=== PATIENT | male | born 1965 | race Caucasian/White ===

== ENCOUNTER 2017-11-10 14:27 | Emergency (ER) | payer OTHER ==
[2017-11-10 18:25] LABS: ADD MAN DIFF? NO
[2017-11-10 18:28] LABS: WHITE BLOOD COUNT 6.7 10^3/ul (4.8-10.8)
[2017-11-10 18:28] LABS: BASOPHILS % 0.3 % (0.0-2.0); EOSINOPHILS % 0.3 % (0.0-7.0); HEMATOCRIT 34.6 % (42.0-52.0); HEMOGLOBIN 12.5 g/dl (14.0-18.0); LYMPHOCYTES # 1.2 10^3/ul (0.8-2.9); MEAN CORPUSCULAR HEMOGLOBIN 31.2 pg (29.0-33.0); MEAN CORPUSCULAR HGB CONC 36.1 g/dl (32.0-37.0); MEAN CORPUSCULAR VOLUME 86.3 fl (82.0-101.0); MEAN PLATELET VOLUME 9.5 fl (7.4-10.4); MONOCYTE # 0.6 10^3/ul (0.3-0.9); MONOCYTES % 9.4 % (0.0-11.0); NEUTROPHIL # 4.8 10^3/ul (1.6-7.5); NEUTROPHILS % 71.6 % (39.0-77.0); PLATELET COUNT 203 10^3/UL (140-415); RED BLOOD COUNT 4.01 10^6/ul (4.70-6.10); RED CELL DISTRIBUTION WIDTH 12.4 % (11.5-14.5)
[2017-11-10] MEDS: SODIUM CHLORIDE 0.9% 1L BAG IV* (18:35)
[2017-11-10] MEDS: ONDANSETRON 4 MG INJ IV (18:36)
[2017-11-10 18:43] LABS: INR 0.94; PROTIME 12.7 Sec (11.9-14.9)
[2017-11-10 18:44] LABS: PARTIAL THROMBOPLASTIN TIME 28.1 Sec (25.0-35.0)
[2017-11-10 18:49] LABS: LACTIC ACID 1.4 mmol/L (0.5-2.0)
[2017-11-10 18:54] LABS: ALANINE AMINOTRANSFERASE 37 IU/L (13-69); ALBUMIN 3.8 g/dl (3.3-4.9); ALBUMIN/GLOBULIN RATIO 1.11; ALKALINE PHOSPHATASE 90 IU/L (42-121); ANION GAP 15 (8-16); ASPARTATE AMINO TRANSFERASE 31 IU/L (15-46); BILIRUBIN,INDIRECT 0.1 mg/dl (0-1.1); BILIRUBIN,TOTAL 0.1 mg/dl (0.2-1.3); BLOOD UREA NITROGEN 25 mg/dl (7-20); CALCIUM 9.2 mg/dl (8.4-10.2); CARBON DIOXIDE 27 mmol/L (21-31); CHLORIDE 95 mmol/L (97-110); CREATININE 1.88 mg/dl (0.61-1.24); GLUCOSE 116 mg/dl (70-220); POTASSIUM 3.5 mmol/L (3.5-5.1); SODIUM 133 mmol/L (135-144); TOTAL PROTEIN 7.2 g/dl (6.1-8.1)
[2017-11-10 19:01] LABS: TROPONIN-I 0.014 ng/ml (0.00-0.12)
[2017-11-10] MEDS: DICYCLOMINE 20 MG INJ IM (20:33)
== END 2017-11-10 20:56 | disposition home or self-care (01) ==
LOC: E/R 14:27
DX: N18.9 Chronic kidney disease, unspecified (principal); I12.9 Hypertensive chronic kidney disease with stage 1 through stage 4 chronic kidney disease, or unspecified chronic kidney disease; E11.22 Type 2 diabetes mellitus with diabetic chronic kidney disease; Z79.84 Long term (current) use of oral hypoglycemic drugs
CPT/HCPCS: 71045; 74176; 80053; 82962; 83605; 84484; 85025; 85610; 85730; 87040; 93005; 96372; 96374; 99285-25

== ENCOUNTER 2018-01-11 11:20 | Day surgery (SDC) | payer OTHER ==
[2018-01-11] MEDS ORDERED: hydrALAzine 20 MG INJ (13:30)
[2018-01-11] MEDS ORDERED: PROPOFOL 40 ML (13:30)
[2018-01-11] MEDS ORDERED: EPINEPHrine 0.1 MG/ML SYG (14:22)
== END 2018-01-11 15:38 | disposition home or self-care (01) ==
LOC: GIL 11:20
DX: K29.50 Unspecified chronic gastritis without bleeding (principal); K22.70 Barrett's esophagus without dysplasia; Z86.010 Personal history of colon polyps; I10 Essential (primary) hypertension; E11.9 Type 2 diabetes mellitus without complications; E78.5 Hyperlipidemia, unspecified
CPT/HCPCS: 43239; 82962; 88305; 88312; 88313

== ENCOUNTER 2018-05-09 20:15 | Emergency (ER) | payer OTHER ==
[2018-05-09 20:43] LABS: ADD MAN DIFF? NO
[2018-05-09] MEDS: LIDOCAINE/MYLANTA 40 ML BTL PO (20:44)
[2018-05-09] MEDS: ASPIRIN 325 MG TAB PO (20:44)
[2018-05-09 20:45] LABS: BASOPHILS % 0.5 % (0.0-2.0); EOSINOPHILS % 0.7 % (0.0-7.0); HEMATOCRIT 35.1 % (42.0-52.0); HEMOGLOBIN 12.3 g/dl (14.0-18.0); LYMPHOCYTES # 1.7 10^3/ul (0.8-2.9); LYMPHOCYTES % 28.8 % (15.0-51.0); MEAN CORPUSCULAR HEMOGLOBIN 30.4 pg (29.0-33.0); MEAN CORPUSCULAR VOLUME 86.9 fl (82.0-101.0); MEAN PLATELET VOLUME 10.2 fl (7.4-10.4); MONOCYTE # 0.4 10^3/ul (0.3-0.9); MONOCYTES % 7.5 % (0.0-11.0); NEUTROPHIL # 3.6 10^3/ul (1.6-7.5); NEUTROPHILS % 62.3 % (39.0-77.0); PLATELET COUNT 215 10^3/UL (140-415); RED BLOOD COUNT 4.04 10^6/ul (4.70-6.10); RED CELL DISTRIBUTION WIDTH 11.7 % (11.5-14.5)
[2018-05-09 20:45] LABS: WHITE BLOOD COUNT 5.8 10^3/ul (4.8-10.8)
[2018-05-09 21:01] LABS: ANION GAP 16 (8-16); BLOOD UREA NITROGEN 20 mg/dl (7-20); CALCIUM 9.1 mg/dl (8.4-10.2); CARBON DIOXIDE 26 mmol/L (21-31); CHLORIDE 92 mmol/L (97-110); CREATININE 1.48 mg/dl (0.61-1.24); POTASSIUM 3.9 mmol/L (3.5-5.1); SODIUM 130 mmol/L (135-144)
[2018-05-09 21:13] LABS: B-TYPE NATRIURETIC PEPTIDE 464 PG/ML (0-125); TROPONIN-I < 0.010 ng/ml (0.000-0.120)
[2018-05-09 21:18] LABS: GLUCOSE 444 mg/dl (70-220)
[2018-05-09] MEDS: KETOROLAC 30 MG INJ IV (21:25)
[2018-05-09] MEDS: ONDANSETRON 4 MG INJ IV (21:25)
[2018-05-09] MEDS: SOD CHLORIDE 0.9% 1,000 ML IV (21:25)
== END 2018-05-09 23:30 | disposition home or self-care (01) ==
LOC: E/R 20:15
DX: M94.0 Chondrocostal junction syndrome [Tietze] (principal); E11.65 Type 2 diabetes mellitus with hyperglycemia; N28.9 Disorder of kidney and ureter, unspecified; Z79.82 Long term (current) use of aspirin; Z79.84 Long term (current) use of oral hypoglycemic drugs
CPT/HCPCS: 36415; 71045; 80048; 82962; 83880; 84484; 85025; 93005; 96361; 96374; 96375; 99285-25